=== PATIENT | male | born 1980 | race African-American/Black ===

== ENCOUNTER 2017-07-16 12:14 | Emergency (ER) | payer OTHER ==
[~2017-07-16] VITALS: Ht 182.9 cm; Wt 104.3 kg
[2017-07-16] MEDS ORDERED: ELVI1TAB3 PO (12:35)
--- NOTE | 2017-07-16 12:53 | NUR ---
Patient discharged to home in stable conditon. Written and verbal after care instructions given. Patient verbalizes understanding of instructions.
== END 2017-07-16 12:55 | disposition home or self-care (01) ==
LOC: ER 12:14
DX: F32.9 Major depressive disorder, single episode, unspecified (principal); Z59.0 Homelessness; F41.9 Anxiety disorder, unspecified
CPT/HCPCS: A4663